=== PATIENT | male | born 1975 | race Two or more races ===

== ENCOUNTER 2017-01-07 07:31 | Observation (INO) | payer MEDICARE, MEDICAID ==
--- NOTE | 2016-12-28 04:08 | Pre-op HX & Phy Repo 2 SIG ---
DATE OF ADMISSION: 01/07/2017 The patient will be admitted possibly on 01/07/2017 under the service of Dr. Michael Iqbal group for left inguinal hernia repair. CHIEF COMPLAINT: Left inguinal hernia repair. HISTORY OF PRESENT ILLNESS: This is the case of a pleasant gentleman who came in to the office today 12/27/2016 for preop medical clearance, left inguinal hernia, symptomatic. He approximately a few months ago, developed left inguinal discomfort and pain and was noted to have some observed bulging in the left inguinal area. Examination shows left inguinal hernia symptomatic. He was seen by Dr. Iqbal and it was recommended that patient be admitted for surgical repair last visit. He is currently asymptomatic. No chest pain, angina, palpitation, or syncope. No shortness of breath. No fevers, night sweats or chills. No other physical complaints. He was just recently released from a very brief incarceration with him admitting that he has not taken his medications for weeks now. He was advised to restart all his medications as soon as possible. He states that he has his medications with him. PAST MEDICAL HISTORY: Significant for stress anxiety, gastroesophageal reflux disease, chronic pain syndrome, seeing pain management, type 2 diabetes, and hyperglycemia with no evidence of current end-organ disease, major depressive disorder, recurrent, crystal methamphetamine abuse, hepatitis B immune, hepatitis A and C negative, obesity, hyperuricemia, vitamin deficiency, HIV infection, uncontrolled and posttraumatic stress disorder. MEDICATIONS: Wellbutrin XL 300 mg once a day, calciferol D3 05963 units once a month, Triumeq 300 mg one p.o. daily, Uloric 40 mg one p.o. daily, diphenhydramine 50 mg p.o. nightly p.r.n. itching, metformin 500 mg one p.o. twice a day, multivitamin one p.o. daily, hydrocodone 5/325 one p.o. q.6 h. p.r.n. pain, and pantoprazole 40 mg p.o. q.p.m. ALLERGIES TO MEDICATIONS: None known. PERSONAL AND SOCIAL HISTORY: He is single. He is disabled. He currently lives with a friend. He smokes less than one pack per day, trying to decrease. He uses intermittent crystal methamphetamine. He states that he is trying to decrease use currently. He takes caffeine and occasional alcohol. FAMILY HISTORY: Noncontributory. REVIEW OF SYSTEMS: General: Positive weight gain. No gross fatigued, weakness, fevers, chills or night sweats. He is a well-developed, poorly nourished, oriented x3, emotional, in no acute cardiorespiratory distress. HEENT: No vision changes. No hearing loss. No swallowing problems. Neck: No masses. No tenderness. Pulmonary: No gross shortness of breath. No coughing, wheezing, expectoration, or hemoptysis. Cardiac: No chest pain, shortness of breath, palpitations, or syncope. Gastrointestinal: Positive occasional , but no other findings. No constipation. No melena or hematochezia. No bright red blood per rectum. No diarrhea. Genitourinary: No dysuria, frequency, hesitancy, or retention. No hematuria. Musculoskeletal: Muscle aches and joint pains. No focal weakness noted. Neurological: No new complaints. No sensory or motor deficits at this time. Psychiatric: He has chronic depression, but no suicidal or homicidal ideations, nor plans. No currently per the patient. PHYSICAL EXAMINATION: VITAL SIGNS: Height is 5 feet 5 inch. Weight is 200 pounds (weight loss of 15 pounds since last visit about 2 months ago). Temperature 98.9 degrees, pulse 85, respirations 15, blood pressure 100/60, and O2 saturation 97%. Pain scale per the patient is 10/10. GENERAL: The patient is a fairly developed obese male, in no acute cardiorespiratory distress. He is alert, coherent, cooperative, emotional and fearful describing his current situation and his previous experience. HEENT: Normocephalic and atraumatic head. Fox conjunctivae. Nonicteric sclerae. Pupils equally reactive to light 3 to 4 mm bilateral. Full EOMs. No jugular venous distention or cervical lymphadenopathy. Trachea midline. Thyroid normal. Supple. CHEST: Bilaterally symmetrical with clear breath sounds. No rales. No wheezes. CARDIOVASCULAR: Regular rate and rhythm. No murmurs. No clicks. No cardiomegaly. ABDOMEN: Globular, soft, and nontender. No hepatosplenomegaly. Normoactive bowel sounds. EXTREMITIES: Fair peripheral pulses. No edema. No cyanosis. No clubbing. GENITOURINARY: Per surgeon. RECTAL: Refused to sign. ASSESSMENT: 1. Left inguinal hernia. 2. Acquired-immunodeficiency syndrome. 3. Crystal methamphetamine abuse. 4. Hyperuricemia. 5. Diabetes mellitus type 2. 6. Chronic pain syndrome. 7. Vitamin D deficiency. 8. Depression. PLAN: 1. The patient is currently cleared for surgery, pending labs. 2. EKG obtained today shows normal sinus rhythm with no acute changes. 3. Plan of management has been discussed with the patient. He is agreeable. 4. Surgical consent for surgery and the surgery service. Heron Lilly M.D. DR: YONAS JOB#: [id number] CC:
--- NOTE | 2017-01-06 20:49 | History and Physical Report ---
DATE OF ADMISSION: 01/07/2017 The patient is scheduled for surgery on 01/07/2017. REASON FOR ADMISSION: Left inguinal hernia. HISTORY OF PRESENT ILLNESS: This 41-year-old black male presents with some left groin discomfort for approximately one year. He was seen by Urology staff in December 2015 and was told that he had a left inguinal hernia. He has been gaining weight recently approximately 25 pounds in the past six months. He also has a fatty liver. He has a history of Crohn's disease diagnosed in 1996. PAST SURGICAL HISTORY: Previous surgeries, none. Colonoscopy and upper endoscopy. MEDICATIONS: Triumeq, Uloric, hydrocodone, pantoprazole 40 mg, vitamin D2, and Benadryl p.r.n. ALLERGIES: None known. SOCIAL HISTORY: Tobacco, one-half pack per day for 15 years. Alcohol, occasional wine. 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 FAMILY HISTORY: The patient's mother and father have diabetes mellitus. His father has liver disease as well. REVIEW OF SYSTEMS: Includes a history of bronchitis and peptic ulcers. The patient has had a hepatitis B vaccine. He has been HIV positive since 2014. No history of opportunistic infections. PHYSICAL EXAMINATION: GENERAL: Reveals a well-developed and well-nourished black male, in no acute distress. HEENT: Normocephalic. Pupils are equal and reactive to light. There is no scleral icterus. NECK: Supple without adenopathy. LUNGS: Clear. HEART: Showed a regular rhythm. No murmurs. No gallops. ABDOMEN: Soft. There is mild discomfort in the right upper quadrant. There were no masses. GENITALIA: Shows testes descended bilaterally. There is a reducible left inguinal hernia. There is no hernia in the right groin. There are no testicular masses. EXTREMITIES: Showed no clubbing, cyanosis, or edema. IMPRESSION: Left inguinal hernia. PLAN: The patient was advised to undergo a left inguinal hernia repair with mesh. The nature, risks, and benefits of the procedure were explained. Michael Iqbal M.D. DR: LANRE JOB#: [id number] CC:
[~2017-01-07] VITALS: Ht 167.6 cm; Wt 86.2 kg
[2017-01-07] VITALS (18 sets, daily range): BP systolic 103–131; BP diastolic 63–94
[2017-01-07] MEDS ORDERED: TRIUMEQ PO (08:09)
[2017-01-07] MEDS ORDERED: VITAMIN D22000 UNIT PO (08:12)
[2017-01-07] MEDS ORDERED: WELLBUTRIN XL150 M1 ORAL (08:12)
[2017-01-07] MEDS ORDERED: BENADRYL25 MG ORAL (08:12)
--- NOTE | 2017-01-07 08:18 | Anethesia Preoperative Eval ---
Anesthesia Pre-op PMH/ROS General Date of Evaluation: January 07, 2017 Anesthesiologist: Dante ASA Score: ASA 3 Mallampati Score Class I : Soft palate, uvula, fauces, pillars visible Class II: Soft palate, uvula, fauces visible Class III: Soft palate, base of uvula visible Class IV: Only hard plate visible Mallampati Classification: Class II Surgeon: Rasheed Diagnosis: Left inguinal hernia Surgical Procedure: Left inguinal hernia repair Anesthesia History: none Family History: no anesthesia problems Allergies: Coded Allergies: No Known Allergies (Unverified , 01/06/17) Medications: see eMAR Past Medical History Cardiovascular: Denies: CAD, HTN, IA, arrhythmia, other, valve dz Pulmonary: Denies: COPD, ERMA, asthma, other Gastrointestinal/Genitourinary: Reports: GERD, other - Crohns, Denies: CRI, ESRD Neurologic/Psychiatric: Denies: CVA, TIA, dementia, depression/anxiety, other Endocrine: Denies: DM, hypothyroidism, other, steroids HEENT: Denies: [place] (L), [place] (R), cataract (L), cataract (R), glaucoma, other Hematology/Immune: Reports: other - HIV, Denies: DVT, anemia, bleeding disorder Musculoskeletal/Integumentary: Denies: DDD, DJD, OA, RA, edema, other PSxH Narrative: Denies Anesthesia Pre-op Phys. Exam Physician Exam Last Vital Signs Date Time Temp Pulse Resp B/P Pulse Ox O2 Delivery O2 Flow Rate FiO2 01/07/17 07:59 98.7 85 18 104/63 97 Room Air Constitutional: NAD Cardiovascular: RRR Respiratory: CTA Airway Exam Mallampati Score: Class II MO: full ROM: full Anesthesia Pre-op A/P Labs see chart Studies Pre-op Studies: EKG - sr Risk Assessment & Plan Assessment: ASa III Plan: GA Status Change Before Surgery: No Pre-Antibiotics Drug: Ancef 2g Given Within 1 Hr of Incision: Yes Time Given: 09:30 ROSE TOLEDO M.D. January 07, 2017 08:18
[2017-01-07] MEDS ORDERED: Midazolam 2mg/2ml Inj ONE ×2 (09:00→11:24)
[2017-01-07] MEDS ORDERED: fentaNYL 100 mcg/2 mL IV ONE (09:00)
[2017-01-07] MEDS ORDERED: Lidocaine 1% MPF 10mg/ml 5ml ONE (09:00)
[2017-01-07] MEDS ORDERED: Propofol 10mg/ml 20ml IV ONE (09:00)
[2017-01-07] MEDS ORDERED: NS Irrig 1000ml ONE (09:00)
[2017-01-07] MEDS ORDERED: LR 1000ml ONE (09:00)
[2017-01-07] MEDS ORDERED: Sterile Water Irrig 1000ml IRRIG ONE (09:00)
[2017-01-07] MEDS ORDERED: Bupivacaine w/Epi 0.25% 30ml Vial INJ ONE (09:08)
--- NOTE | 2017-01-07 09:28 | Pre-Procedure Note/Attestation ---
Pre-Procedure Note/Attestation Complete Prior to Procedure Planned Procedure: left Procedure Narrative: left inguinal hernia repair with mesh Indications for Procedure Pre-Operative Diagnosis: left inguinal hernia Attestation I attest that I discussed the nature of the procedure; its benefits; risks and complications; and alternatives (and the risks and benefits of such alternatives ), prior to the procedure, with the patient (or the patient's legal hospital insurance representative). I attest that, if there was a reasonable possibility of needing a blood transfusion, the patient (or the patient's legal hospital insurance representative) was given the [facility] standardized written summary, pursuant to the [place] Blood Safety Act ([place] Health and Safety Code # 1645, as amended). I attest that I re-evaluated the patient just prior to the surgery and that there has been no change in the patient's H&P, except as documented below: none Michael Iqbal MD January 07, 2017 09:28
[2017-01-07] MEDS ORDERED: LR 1000ml 1,000 ML IVLG SCH (09:42)
[2017-01-07] MEDS ORDERED: DiphenhydrAMINE 50mg/ml Inj IVP PRN ×2 (09:45→11:30)
[2017-01-07] MEDS ORDERED: Hydromorphone 0.5mg/0.5ml inj IVP PRN (09:45)
--- NOTE | 2017-01-07 11:06 | Immediate Post-Op Evaluation ---
Immediate Post-Op Evalulation Immediate Post-Op Evalulation Procedure: Left inguinal hernia repair Date of Evaluation: January 07, 2017 Time of Evaluation: 11:07 IV Fluids: 800 Blood Products: 0 Estimated Blood Loss: 5 Urinary Output: 0 Blood Pressure Systolic: 114 Blood Pressure Diastolic: 66 Pulse Rate: 86 Respiratory Rate: 16 O2 Sat by Pulse Oximetry: 99 Temperature (Fahrenheit): 98 Pain Score (1-10): 0 Nausea: No Vomiting: No Complications 0 Patient Status: awake, reacts, patent, none Hydration Status: adequate Drug: Ancef 2g Given Within 1 Hr of Incision: Yes Time Given: 09:30 ROSE TOLEDO M.D. January 07, 2017 11:06
[2017-01-07] MEDS: Midazolam 2mg/2ml Inj IVP PRN ×2 (11:25→11:30)
--- NOTE | 2017-01-07 11:26 | Brief Operative Note ---
Immediate Post Operative Note Operative Note Pre-op Diagnosis: left inguinal hernia Procedure: left inguinal hernia repair with mesh Post-op Diagnosis: direct left inguinal hernia Surgeon: Karen Iqbal MD Anesthesiologist: Monique Mackay MD Anesthesia: general Specimen: none Complications: none Condition: stable Estimated Blood Loss: minimal Drains: none Implant(s) used?: Yes - Prolene Mesh Michael Iqbal MD January 07, 2017 11:26
[2017-01-07] MEDS ORDERED: HYDROmorphone 1mg/ml Carpuject SUBQ PRN (11:30)
[2017-01-07] MEDS ORDERED: Tylenol #3 tab (300mg/30mg) ORAL PRN (11:30)
[2017-01-07] MEDS: fentaNYL 100 mcg/2 mL IV PRN ×3 (11:30→12:56)
[2017-01-07] MEDS: D5 1/2NS 1,000 ML IV SCH ×2 (15:52→23:59)
--- NOTE | 2017-01-07 16:28 | 48 Hour Post Anesthesia Eval ---
Post Anesthesia Evaluation Procedure: Left inguinal hernia repair Date of Evaluation: January 07, 2017 Time of Evaluation: 15:00 Blood Pressure Systolic: 103 0: 64 Pulse Rate: 70 Respiratory Rate: 20 Temperature (Fahrenheit): 97.5 O2 Sat by Pulse Oximetry: 95 Airway: patent Nausea: No Vomiting: No Pain Intensity: 2 Hydration Status: adequate Cardiopulmonary Status: at baseline Mental Status/LOC: patient returned to baseline Post-Anesthesia Complications: 0 Follow-up care needed: ready to discharge ROSE TOLEDO M.D. January 07, 2017 16:28
[2017-01-07] MEDS: HYDROmorphone 1mg/ml Carpuject IVP PRN ×2 (20:54→23:55)
--- NOTE | 2017-01-07 21:29 | Operative Note - Dictated ---
DATE OF OPERATION: 01/07/2017 PREOPERATIVE DIAGNOSIS: Left inguinal hernia. POSTOPERATIVE DIAGNOSIS: Direct left inguinal hernia. PROCEDURE: Left inguinal hernia repair with mesh. SURGEON: Michael Iqbal M.D. ANESTHESIA: General via laryngeal mask airway. ANESTHESIOLOGIST: Dr. Mackay. INDICATIONS FOR SURGERY: This 41-year-old black male, presented with problems of left inguinal pain. He was found to have an inguinal hernia. He was advised to undergo a left inguinal hernia repair. The patient also complains of some right groin pain. Both physical examination and ultrasound did not reveal a hernia on the right groin. OPERATIVE FINDINGS: Exploration of the left inguinal region revealed a direct hernia with protrusion of preperitoneal fat. No indirect hernia was found nor was a femoral hernia present. OPERATIVE TECHNIQUE: With the patient in the supine position and after induction of adequate general anesthesia, both groins were prepped and draped in sterile fashion. A time-out was called. A left ilioinguinal nerve block was performed using 0.25 Marcaine with epinephrine solution. An incision was made two fingerbreadths above the left inguinal ligament in parallel to the structure. The subcutaneous tissue was divided by sharp dissection with a scalpel. Several bleeding points were cauterized. Some traversing vein in this area was clamped, divided, and ligated with 3-0 Vicryl. Paige's fascia was divided with electrocautery. The aponeurosis of the external oblique was identified as was the external inguinal ring. An incision was made along the fibers of the external oblique entering the inguinal canal. The ilioinguinal nerve was dissected off of the cord structures and retracted. The spermatic cord was mobilized at the level of the pubic tubercle and retracted with a [place] drain. The cord was carefully skeletonized. There was no indirect hernia sac noted. There was an obvious direct hernia present with protrusion of fat. The fascial floor was inspected. A piece of Prolene mesh was placed on the fascial floor. The medial aspect of the mesh was tacked in the pubic tubercle with a 2-0 Prolene suture. The inferior edge of the mesh was tacked to the shelving edge of the inguinal ligament with a running 2-0 Prolene suture. The mesh was dissected lateral to the cord pacing one wing above and one wing below the cord. The superior aspect of the mesh was tacked in the tendinous edge of transversalis with a running 2-0 Prolene suture. Lateral to the cord, the two wings were crossed over and tacked to the internal oblique muscle completing the repair. The ilioinguinal nerve was carefully identified and protected to ensure no inadvertent impingement on the nerve. The newly created internal ring was inspected and was found to be somewhat snug. A small relaxing incision was made in the mesh just medial to the cord. The wound was irrigated with normal saline. A gap on the very medial aspect of the mesh was repaired by placing a 2-0 Prolene suture from the mesh to just above the pubic tubercle. The spermatic cord and ilioinguinal nerve were placed back in the inguinal canal. The external oblique layer was closed with a running 2-0 Vicryl suture. Paige's fascia was closed with interrupted 3-0 Vicryl sutures. The skin was closed with running 4-0 Vicryl stitch. The incision was injected with 10 mL of 0.25% Marcaine with epinephrine solution. Steri-Strips were applied. Sterile dressings were applied. The patient tolerated the procedure well and was returned to the recovery room in stable condition. Estimated blood loss was less than 10 mL. Michael Iqbal M.D. DR: LANRE JOB#: [id number] CC: Heron Lilly M.D.; Fax#: [phone]
[2017-01-08] VITALS: BP 99/58
[2017-01-08] MEDS: Norco 5mg/325mg tab ORAL PRN ×2 (01:01→05:00)
[2017-01-08] MEDS: HYDROmorphone 1mg/ml Carpuject IVP PRN ×3 (03:05→09:10)
[2017-01-08 04:00] VITALS: BP 100/60
[2017-01-08 08:00] VITALS: BP 102/46
[2017-01-08] MEDS ORDERED: NORCO 5-325 TA1 EACH ORAL (09:47)
[2017-01-08] MEDS: D5 1/2NS 1,000 ML IV SCH (11:00)
[2017-01-08] MEDS ORDERED: SENNA S TABLET1 EAC1 PO (11:05)
--- NOTE | 2017-01-08 11:08 | General Surgery Progress Note ---
General Surgery-Progress Note Subjective Symptoms: improved, tolerating diet Additional Comments patient seen and examined at bedside. no acute events. required overnight stay for pain management. still with pain this morning but tolerable. no n/v/f /c. tolerating oral diet. ambulatory with pain as anticipated. doing well overall. Objective Last 24 Hour Vital Signs Date Time Temp Pulse Resp B/P Pulse Ox O2 Delivery O2 Flow Rate FiO2 01/08/17 09:42 97.5 01/08/17 08:00 97.5 66 18 102/46 94 Room Air 01/08/17 06:09 97.5 01/08/17 04:00 97.7 61 16 100/60 98 Room Air 01/08/17 00:00 97.8 67 16 99/58 95 Room Air 01/07/17 20:00 98.0 102 18 131/94 98 Room Air 01/07/17 16:28 70 20 95 01/07/17 15:00 97.5 70 20 103/64 95 Room Air 01/07/17 14:00 68 16 108/64 100 Room Air 01/07/17 13:30 97.8 01/07/17 13:30 97.3 78 17 111/79 100 Room Air 01/07/17 13:15 79 18 103/72 100 Room Air 01/07/17 13:00 67 15 111/76 100 Room Air 01/07/17 12:45 67 16 108/72 100 Room Air 01/07/17 12:30 97.8 01/07/17 12:30 69 18 117/77 99 Room Air 01/07/17 12:15 73 14 115/77 100 Simple Mask 6.0 01/07/17 12:00 73 15 109/76 100 Simple Mask 6.0 01/07/17 11:45 74 14 118/77 99 Simple Mask 6.0 01/07/17 11:40 76 19 122/74 98 Simple Mask 6.0 01/07/17 11:30 79 28 125/78 98 Room Air 01/07/17 11:20 88 22 119/88 100 Simple Mask 6.0 01/07/17 11:10 84 16 119/79 100 Simple Mask 6.0 01/07/17 11:06 86 16 99 I&O Intake and Output 01/07/17 01/08/17 19:00 07:00 Intake Total 1800 ml 800 ml Output Total 5 ml 600 ml Balance 1795 ml 200 ml IV Total 1800 ml 800 ml Output Urine Total 600 ml Estimated Blood Loss 5 ml # Voids 3 1 Dressing: dry Wound: clean, dry, intact Drains: none Cardiovascular: RSR Respiratory: clear Abdomen: soft, non-tender, present bowel sounds Extremities: no edema, no tenderness, no cyanosis Plan Additional Comments 41 M POD #1 s/p left inguinal hernia repair with mesh. doing well. recovering. required overnight stay for pain management. doing better this morning. -D/C home -Rx as writtent -Follow up in [address] Iqbal. call office for appointment. -wound care and activity instructions given to patient verbally at bedside. Gage Powell January 08, 2017 11:07
--- NOTE | 2017-01-08 11:09 | Discharge Instructions ---
Discharge Instructions Discharge Instructions Follow up with: Dr. Iqbal in 1 week. call office for appointment Call MD/Return to Hospital if: worsening condition Diet: regular Resume Normal Activity?: No - no heavy lifting >15lbs for 4-6 weeks. Activity: up ad sherron, light activity, ambulate, okay to shower For Surgical Patients Dressing Care: may change May shower: Yes Contact your physician for: bleeding, pain, redness, swelling, yellowish discharge in the op. site For Congestive Heart Failure Reminder Report to your physician any weight gain of 5 pounds or more in one week. Gage Powell January 08, 2017 11:09
== END 2017-01-08 12:00 | disposition home or self-care (01) ==
LOC: SUR 07:31 → 3E 13:38 → INTOOBSV 13:38
DX: K40.90 Unilateral inguinal hernia, without obstruction or gangrene, not specified as recurrent (principal); F41.8 Other specified anxiety disorders; F33.9 Major depressive disorder, recurrent, unspecified; F43.10 Post-traumatic stress disorder, unspecified; K21.9 Gastro-esophageal reflux disease without esophagitis; G89.4 Chronic pain syndrome; E11.9 Type 2 diabetes mellitus without complications; F15.10 Other stimulant abuse, uncomplicated; E66.9 Obesity, unspecified; Z68.33 Body mass index [BMI] 33.0-33.9, adult; E79.0 Hyperuricemia without signs of inflammatory arthritis and tophaceous disease; E55.9 Vitamin D deficiency, unspecified; F17.210 Nicotine dependence, cigarettes, uncomplicated; K50.90 Crohn's disease, unspecified, without complications; Z79.84 Long term (current) use of oral hypoglycemic drugs
CPT/HCPCS: 49505; 82962; C1781; G0378 ×2; J0690; J1170 ×3; J1200; J2250; J2405; J2704; J3010; J7120; 94003; 94150

== ENCOUNTER 2017-06-06 12:08 | Outpatient (CLI) | payer MEDICARE, MEDICAID ==
[~2017-06-06 12:08] MED LIST: BENADRYL25 MG ORAL; NORCO 5-325 TA1 EACH ORAL; SENNA S TABLET1 EAC1 PO; TRIUMEQ PO; VITAMIN D22000 UNIT PO; WELLBUTRIN XL150 M1 ORAL
--- NOTE | 2017-06-06 14:31 | Diagnostic Imaging Report ---
Indication: Abdominal pain Technique: Continuous helical transaxial imaging of the abdomen and pelvis was obtained from the lung bases to the iliac crest before and during intravenous contrast administration. Coronal 2-D reformats were also obtained. Study obtained in a Siemens sensation [address] Total Dose length Product (DLP): [address] Dose Index Volume (CTDIvol): 0.15, 15.55, 8.1, 129.78, 15.55, 16.01 mGy Comparison: None Findings: Lung bases are clear. Noncontrast portion of the study shows no evidence of renal stones. Both kidneys enhance normally on arterial venous and delayed phases of enhancement. There is no hydronephrosis. No focal lesions are seen within either kidney. The visualized part of the abdomen shows no evidence of ascites. The liver and spleen, pancreas, gallbladder appear unremarkable. There is no adrenal mass. Small nodes in the retroperitoneum noted. The liver is normal in size having a craniocaudal dimension of about 15 cm. There is no splenomegaly. Portal vein enhances normally. Impression: Negative evaluation of the abdomen. The CT scanner at [facility] is accredited by the [employer] and the scans are performed using protocols designed to limit radiation exposure to as low as reasonably achievable to attain images of sufficient resolution adequate for diagnostic evaluation.
== END 2017-06-06 14:08 | disposition home or self-care (01) ==
LOC: CAT 12:08
DX: R10.9 Unspecified abdominal pain (principal)
CPT/HCPCS: 74170; Q9967

== ENCOUNTER 2017-12-20 17:41 | Inpatient (IN) | payer MEDICARE, MEDICAID ==
[~2017-12-20] VITALS: Ht 162.6 cm; Wt 89.4 kg
[2017-12-20 18:17] VITALS: BP 123/76
[2017-12-20] MEDS ORDERED: Morphine Sulfate 4mg/ml Inj IVP ONE (18:30)
[2017-12-20] MEDS ORDERED: Aspirin Baby 81mg ORAL ONE (18:30)
[2017-12-20] MEDS ORDERED: Aspirin Baby 81mg ONE (18:41)
--- NOTE | 2017-12-20 18:59 | Emergency Room Report ---
History of Present Illness General Chief Complaint: Pain Source: Patient Present Illness [facility] Patient's primary care physician is Dr. Heron Yeager. Patient has a history HIV. Patient presents emergency department today complaining of acute onset of chest pain. Patient states that he has had chest pain intermittently for a couple weeks. He has been admitted recently to [facility] where he was detoxing from methamphetamine abuse. He also was seen at [facility] yesterday where he had a CAT scan. However he did not have troponin. He presents today complaining of persistent chest pain. He went to see his primary care physician Dr. Heron Yeager and then was told to come emergency department for his chest pain. He denies any leg pain leg swelling. Denies having recent stress test. Symptoms noted to be moderate to severe. Patient denies any cough runny nose or sore throat.No other modifying factors. No other associated signs and symptoms. No other complaints were noted. Allergies: Coded Allergies: No Known Allergies (Unverified , 01/06/17) Patient History Past Medical History: DM Past Surgical History: none Pertinent Family History: none Social History: Denies: smoking, alcohol use, drug use Reviewed Nursing Documentation: PMH: Agreed; PSxH: Agreed Nursing Documentation-PMH Hx Cardiac Problems: No - HIV + Hx Diabetes: Yes Hx Cancer: No Hx Gastrointestinal Problems: Yes Hx Neurological Problems: No Review of Systems All Other Systems: negative except mentioned in HPI Physical Exam Vital Signs Date Time Temp Pulse Resp B/P (MAP) Pulse Ox O2 Delivery O2 Flow Rate FiO2 12/20/17 17:43 98.0 98 18 109/77 95 Room Air 98.1 Sp02 EP Interpretation: reviewed, normal General Appearance: alert, moderate distress Head: atraumatic Eyes: bilateral eye normal inspection ENT: normal ENT inspection, hearing grossly normal, normal voice Neck: normal inspection, full range of motion, supple, no bony tend Respiratory: normal inspection, lungs clear, normal breath sounds, no respiratory distress, no retraction, no wheezing Cardiovascular #1: regular rate, rhythm, no edema Gastrointestinal: normal inspection, normal bowel sounds, non tender, soft, no guarding, no hernia Genitourinary: no CVA tenderness Musculoskeletal: normal inspection, back normal, normal range of motion Neurologic: normal inspection, alert, responsive, speech normal Psychiatric: normal inspection, judgement/insight normal, mood/affect normal Skin: normal inspection, normal color, no rash Medical Decision Making Diagnostic Impression: Primary Impression: ACS (acute coronary syndrome) Additional Impression: Drug abuse ER Course Patient presented to the emergency department today complaining of chest pain. Differential diagnoses include acute coronary syndrome, pulmonary embolism, pneumothorax, chest wall pain, pleurisy, pericarditis, acute anxiety reaction just to name a few. Given the severity of the patient's presentation I felt this is a highly complex patient. This patient required extensive workup. CBC , chemistry, EKG, chest x-ray, cardiac enzymes, liver profile were all obtained. 12-lead EKG performed for nontraumatic chest pain. PQRS documentation: EKG was performed. Please refer to below for interpretation. Patient's laboratory workup was negative except for evidence of drug abuse. Case was discussed with Dr. Yeager. Given patient's comp located history high risk behavior felt the patient require admission for further treatment. Case will be discussed with Dr. Recio's group for admission. Labs Test 12/20/17 18:31 12/20/17 19:40 White Blood Count 5.6 K/UL (4.8-10.8) Red Blood Count 3.96 M/UL (4.70-6.10) Hemoglobin 12.9 G/DL (14.2-18.0) Hematocrit 37.9 % (42.0-52.0) Mean Corpuscular Volume 96 FL (80-99) Mean Corpuscular Hemoglobin 32.6 PG (27.0-31.0) Mean Corpuscular Hemoglobin Concent 34.1 G/DL (32.0-36.0) Red Cell Distribution Width 13.7 % (11.6-14.8) Platelet Count 224 K/UL (150-450) Mean Platelet Volume 8.3 FL (6.5-10.1) Neutrophils (%) (Auto) 47.9 % (45.0-75.0) Lymphocytes (%) (Auto) 36.6 % (20.0-45.0) Monocytes (%) (Auto) 10.9 % (1.0-10.0) Eosinophils (%) (Auto) 3.5 % (0.0-3.0) Basophils (%) (Auto) 1.1 % (0.0-2.0) Sodium Level 141 MMOL/L (136-145) Potassium Level 3.8 MMOL/L (3.5-5.1) Chloride Level 105 MMOL/L (98-107) Carbon Dioxide Level 27 MMOL/L (21-32) Anion Gap 10 mmol/L (5-15) Blood Urea Nitrogen 16 mg/dL (7-18) Creatinine 1.1 MG/DL (0.55-1.30) Estimat Glomerular Filtration Rate > 60 mL/min (>60) Glucose Level 95 MG/DL (74-106) Calcium Level 8.8 MG/DL (8.5-10.1) Total Bilirubin 0.2 MG/DL (0.2-1.0) Aspartate Amino Transf (AST/SGOT) 31 U/L (15-37) Alanine Aminotransferase (ALT/SGPT) 109 U/L (12-78) Alkaline Phosphatase 84 U/L (46-116) Total Creatine Kinase 573 U/L (26-308) Creatine Kinase MB 3.4 NG/ML (0.0-3.6) Creatine Kinase MB Relative Index 0.5 Troponin I 0.000 ng/mL (0.000-0.056) Pro-B-Type Natriuretic Peptide 20 pg/mL (0-125) Total Protein 7.8 G/DL (6.4-8.2) Albumin 4.0 G/DL (3.4-5.0) Globulin 3.8 g/dL Albumin/Globulin Ratio 1.1 (1.0-2.7) Urine Color Pale yellow Urine Appearance Clear Urine pH 6 (4.5-8.0) Urine Specific [place] 1.015 (1.005-1.035) Urine Protein Negative (NEGATIVE) Urine Glucose (UA) Negative (NEGATIVE) Urine Ketones Negative (NEGATIVE) Urine Occult Blood Negative (NEGATIVE) Urine Nitrite Negative (NEGATIVE) Urine Bilirubin Negative (NEGATIVE) Urine Urobilinogen Normal MG/DL (0.0-1.0) Urine Leukocyte Esterase 1+ (NEGATIVE) Urine RBC 0-2 /HPF (0 - 0) Urine WBC 0-2 /HPF (0 - 0) Urine Squamous Epithelial Cells None /LPF (NONE/OCC) Urine Bacteria Few /HPF (NONE) Urine Opiates Screen Negative (NEGATIVE) Urine Barbiturates Screen Negative (NEGATIVE) Phencyclidine (PCP) Screen Negative (NEGATIVE) Urine Amphetamines Screen Positive (NEGATIVE) Urine Benzodiazepines Screen Positive (NEGATIVE) Urine Cocaine Screen Negative (NEGATIVE) Urine Marijuana (THC) Screen Positive (NEGATIVE) EKG Diagnostic Results Rate: normal Rhythm: NSR ST Segments: no acute changes Rhythm Strip Diag. Results EP Interpretation: yes Rate: 86 Rhythm: NSR, no PVC's, no ectopy Chest X-Ray Diagnostic Results Chest X-Ray Diagnostic Results : Chest X-Ray Ordered: Yes # of Views/Limited/Complete: 1 View Indication: Chest Pain EP Interpretation: Yes Interpretation: no consolidation, no effusion, no pneumothorax, no acute cardiopulmonary disease Impression: No acute disease Electronically Signed by: Dr. Baldemar Zhao MD Last Vital Signs Date Time Temp Pulse Resp B/P (MAP) Pulse Ox O2 Delivery O2 Flow Rate FiO2 12/20/17 18:47 98.0 12/20/17 18:17 96 29 123/76 99 Room Air Status: improved Disposition: ADMITTED INPATIENT Condition: Serious Referrals: HERON YEAGER (PCP) BALDEMAR ZHAO M.D. Dec 20, 2017 18:59
[2017-12-20] MEDS ORDERED: DiphenhydrAMINE 50mg/ml Inj IVP ONE ×2 (19:00→20:30)
[2017-12-20 19:04] LABS: BASOPHILS % (AUTO) 1.1 % (0.0-2.0); EOSINOPHILS % (AUTO) 3.5 % (0.0-3.0); HEMATOCRIT 37.9 % (42.0-52.0); HEMOGLOBIN 12.9 G/DL (14.2-18.0); LYMPHOCYTES % (AUTO) 36.6 % (20.0-45.0); MEAN CORPUSCULAR VOLUME 96 FL (80-99); MONOCYTES % (AUTO) 10.9 % (1.0-10.0); NEUTROPHILS % (AUTO) 47.9 % (45.0-75.0); PLATELET COUNT 224 K/UL (150-450); RED BLOOD COUNT 3.96 M/UL (4.70-6.10); RED CELL DISTRIBUTION WIDTH 13.7 % (11.6-14.8); WHITE BLOOD COUNT 5.6 K/UL (4.8-10.8)
[2017-12-20 19:28] LABS: ALANINE AMINOTRANSFERASE 109 U/L (12-78); ALBUMIN/GLOBULIN RATIO 1.1 (1.0-2.7); ALKALINE PHOSPHATASE 84 U/L (46-116); ANION GAP 10 mmol/L (5-15); ASPARTATE AMINO TRANSFERASE 31 U/L (15-37); BILIRUBIN,TOTAL 0.2 MG/DL (0.2-1.0); BLOOD UREA NITROGEN 16 mg/dL (7-18); CALCIUM 8.8 MG/DL (8.5-10.1); CARBON DIOXIDE 27 MMOL/L (21-32); CHLORIDE 105 MMOL/L (98-107); CKMB 3.4 NG/ML (0.0-3.6); CREATINE KINASE 573 U/L (26-308); CREATININE 1.1 MG/DL (0.55-1.30); POTASSIUM 3.8 MMOL/L (3.5-5.1); SODIUM 141 MMOL/L (136-145)
[2017-12-20 19:45] VITALS: BP 119/72
[2017-12-20] MEDS ORDERED: BANOPHEN25 MG PO (19:58)
[2017-12-20] MEDS ORDERED: ULORIC40 MG ORAL (19:58)
[2017-12-20] MEDS ORDERED: IBUPROFEN600 MG ORAL (19:58)
[2017-12-20] MEDS ORDERED: WELLBUTRIN XL150 MG ORAL (20:08)
[2017-12-20 20:22] LABS: APPEARANCE,URINE CLEAR; BILIRUBIN, URINE NEGATIVE (NEGATIVE); COLOR,URINE PALE YELLOW; GLUCOSE, URINE (UA) NEGATIVE (NEGATIVE); KETONES,URINE NEGATIVE (NEGATIVE); LEUKOCYTE ESTERASE ,URINE 1+ (NEGATIVE); NITRITE,URINE NEGATIVE (NEGATIVE); PH,URINE 6 (4.5-8.0); PROTEIN,URINE NEGATIVE (NEGATIVE); UROBILINOGEN,URINE NORMAL MG/DL (0.0-1.0)
[2017-12-20] MEDS ORDERED: BISACODYL5 MG ORAL (20:29)
[2017-12-20] MEDS ORDERED: VENTOLIN HFA18 GM INH (20:29)
[2017-12-20 21:00] VITALS: BP 117/63
[2017-12-20 21:50] VITALS: BP 113/65
[2017-12-21] VITALS: BP 99/62
[2017-12-21 04:00] VITALS: BP 99/57
[2017-12-21 08:00] VITALS: BP 101/70
[2017-12-21] MEDS ORDERED: Albuterol 90mcg Inhaler 8gm INH PRN (09:00)
--- NOTE | 2017-12-21 09:02 | Diagnostic Imaging Report ---
Indication: Cough Technique: XRAY Chest 1v Comparison: None Findings: The cardiomediastinal silhouette is within normal limits. There is no focal consolidation, pneumothorax or pleural effusion. Osseous structures demonstrate no acute abnormality. Impression: No focal consolidation.
[2017-12-21 09:45] LABS: ALANINE AMINOTRANSFERASE 88 U/L (12-78); ALBUMIN 3.4 G/DL (3.4-5.0); ALBUMIN/GLOBULIN RATIO 0.9 (1.0-2.7); ALKALINE PHOSPHATASE 83 U/L (46-116); ANION GAP 9 mmol/L (5-15); ASPARTATE AMINO TRANSFERASE 23 U/L (15-37); BILIRUBIN,TOTAL 0.2 MG/DL (0.2-1.0); BLOOD UREA NITROGEN 20 mg/dL (7-18); CALCIUM 8.5 MG/DL (8.5-10.1); CARBON DIOXIDE 27 MMOL/L (21-32); CHLORIDE 107 MMOL/L (98-107); CREATININE 1.1 MG/DL (0.55-1.30); POTASSIUM 4.2 MMOL/L (3.5-5.1); SODIUM 143 MMOL/L (136-145)
[2017-12-21] MEDS ORDERED: NORCO 5-325 TA1 EACH ORAL (10:08)
[2017-12-21] MEDS ORDERED: NORCO 10/3251 EA ORAL (10:08)
[2017-12-21] MEDS ORDERED: Morphine Sulfate 4mg/ml Inj IVP ONE (11:30)
[2017-12-21] MEDS: DiphenhydrAMINE 50mg/ml Inj IVP PRN (11:37)
[2017-12-21] MEDS: Bisacodyl EC 5mg tab ORAL SCH (11:39)
[2017-12-21 12:00] VITALS: BP 103/52
--- NOTE | 2017-12-21 12:23 | History and Physical ---
History of Present Illness General Date patient seen: Dec 21, 2017 Reason for Hospitalization: chest pain, acs r/o Present Illness HPI patient is a 42 year old male with past medical history significant for HIV, DM , adrenal insufficiency attributed to HIV, s/p inguinal hernia repair presents emergency department tcomplaining of acute onset of chest pain. Patient states that he has had chest pain intermittently for a couple weeks but the pain got worse on the day of presentation. He notes sharp occuring at rest and with exertion radaiting to his arm. he notes that when he feels stressed the pain gets worse. He has been admitted recently to [facility] where he was detoxing from methamphetamine abuse. he was discharged from [facility] on 12/16. He also was seen at [facility] 2 days ago where he had a CAT scan and revealed a 3 mm left lower lobe nodule.. He went to see his primary care physician Dr. Heron Lilly and then was told to come emergency department for his chest pain. He denies any leg pain leg swelling. Denies having recent stress test. . Patient denies any cough runny nose or sore throat.No other modifying factors. No other associated signs and symptoms. patient also complains of scrotal discomfort. he has history of inguinal hernia repair patient smokes about 1/2 pack daily for the past 20 years Allergies: Allergies: Coded Allergies: No Known Allergies (Unverified , 01/06/17) Medication History Scheduled Bisacodyl* (Dulcolax*), 5 MG ORAL DAILY, (Reported) Bupropion Hcl* (Wellbutrin Xl*), 150 MG ORAL BID, (Reported) Ergocalciferol (Vitamin D2) (Vitamin D2), 2,000 UNIT PO ONCE A MONTH, (Reported) Febuxostat (Uloric), 40 MG ORAL DAILY, (Reported) Hydrocodone Bit/Acetaminophen 5-325* ([place] 5-325*), 1 TAB ORAL BEDTIME, ( Reported) Hydrocodone/Acetaminophen (Hydrocodon-Acetaminophn 10-325), 1 TAB ORAL ACBREAKFAST, (Reported) Ibuprofen* (Motrin*), 800 MG ORAL THREE TIMES A DAY, (Reported) [Triumeq], 300 MG PO DAILY, (Reported) Scheduled PRN Albuterol Sulfate (Ventolin Hfa), 2 PUFFS INH EVERY 6 HOURS PRN for Shortness of Breath, (Reported) Diphenhydramine Hcl (Banophen), 25 MG PO BID PRN for Itching, (Reported) Discontinued Medications Bupropion HCl (Wellbutrin Xl), 300 MG ORAL DAILY, (Reported) Discontinued Reason: Medication dose changed Hydrocodone Bit/Acetaminophen 5-325* ([place] 5-325*), 1 TAB ORAL Q4H PRN for For Pain, (Reported) Discontinued Reason: Therapy completed Patient History History Provided By: Patient Healthcare decision maker Resuscitation status Full Code Advanced Directive on File Past Medical/Surgical History Past Medical/Surgical History: (1) Drug abuse Review of Systems Constitutional: Reports: no symptoms Eye: Reports: no symptoms Cardiovascular: Reports: chest pain, palpitations Genitourinary: Reports: no symptoms Musculoskeletal: Reports: no symptoms Skin: Reports: no symptoms Neurological: Reports: no symptoms Hematologic/Lymphatic: Reports: no symptoms Physical Exam General Appearance: WD/WN, no apparent distress HEENT: normocephalic, atraumatic Neck: non-tender, supple Respiratory/Chest: chest wall non-tender, lungs clear Abdomen: normal bowel sounds, non tender, soft, no mass Extremities: no edema, no cyanosis, calf tenderness Skin Exam: normal pigmentation Neurologic: soft work wrapper layer and examiner II-XII grossly normal Musculoskeletal: normal muscle bulk Last 24 Hour Vital Signs Date Time Temp Pulse Resp B/P (MAP) Pulse Ox O2 Delivery O2 Flow Rate FiO2 12/21/17 08:00 97.5 70 20 101/70 99 97.5 12/21/17 08:00 72 12/21/17 04:00 79 12/21/17 04:00 97.5 75 20 99/57 96 97.5 12/21/17 00:00 81 12/21/17 00:00 97.2 81 20 99/62 100 97.2 12/20/17 21:50 85 12/20/17 21:50 97.2 84 20 113/65 97 97.2 12/20/17 21:40 98.0 90 20 117/63 99 Room Air 98.0 12/20/17 21:00 98.0 90 20 117/63 99 Room Air 98.0 12/20/17 19:45 98.0 90 22 119/72 99 Room Air 98.0 12/20/17 19:17 98.0 12/20/17 18:47 98.0 12/20/17 18:17 96 29 123/76 99 Room Air 12/20/17 17:43 98.0 98 18 109/77 95 Room Air 98.1 Intake and Output 12/20/17 12/21/17 19:00 07:00 Intake Total 0 ml Output Total 850 ml Balance 0 ml -850 ml Intake Oral 0 ml Output Urine Total 850 ml # Voids 1 Laboratory Tests Test 12/20/17 18:31 12/20/17 19:40 12/21/17 06:53 12/21/17 12:05 White Blood Count 5.6 K/UL (4.8-10.8) Red Blood Count 3.96 M/UL (4.70-6.10) L Hemoglobin 12.9 G/DL (14.2-18.0) L Hematocrit 37.9 % (42.0-52.0) L Mean Corpuscular Volume 96 FL (80-99) Mean Corpuscular Hemoglobin 32.6 PG (27.0-31.0) H Mean Corpuscular Hemoglobin Concent 34.1 G/DL (32.0-36.0) Red Cell Distribution Width 13.7 % (11.6-14.8) Platelet Count 224 K/UL (150-450) Mean Platelet Volume 8.3 FL (6.5-10.1) Neutrophils (%) (Auto) 47.9 % (45.0-75.0) Lymphocytes (%) (Auto) 36.6 % (20.0-45.0) Monocytes (%) (Auto) 10.9 % (1.0-10.0) H Eosinophils (%) (Auto) 3.5 % (0.0-3.0) H Basophils (%) (Auto) 1.1 % (0.0-2.0) Sodium Level 141 MMOL/L (136-145) 143 MMOL/L (136-145) Potassium Level 3.8 MMOL/L (3.5-5.1) 4.2 MMOL/L (3.5-5.1) Chloride Level 105 MMOL/L (98-107) 107 MMOL/L (98-107) Carbon Dioxide Level 27 MMOL/L (21-32) 27 MMOL/L (21-32) Anion Gap 10 mmol/L (5-15) 9 mmol/L (5-15) Blood Urea Nitrogen 16 mg/dL (7-18) 20 mg/dL (7-18) H Creatinine 1.1 MG/DL (0.55-1.30) 1.1 MG/DL (0.55-1.30) Estimat Glomerular Filtration Rate > 60 mL/min (>60) > 60 mL/min (>60) Glucose Level 95 MG/DL (74-106) 84 MG/DL (74-106) Calcium Level 8.8 MG/DL (8.5-10.1) 8.5 MG/DL (8.5-10.1) Total Bilirubin 0.2 MG/DL (0.2-1.0) 0.2 MG/DL (0.2-1.0) Aspartate Amino Transf (AST/SGOT) 31 U/L (15-37) 23 U/L (15-37) Alanine Aminotransferase (ALT/SGPT) 109 U/L (12-78) H 88 U/L (12-78) H Alkaline Phosphatase 84 U/L (46-116) 83 U/L (46-116) Total Creatine Kinase 573 U/L (26-308) H Creatine Kinase MB 3.4 NG/ML (0.0-3.6) Creatine Kinase MB Relative Index 0.5 Troponin I 0.000 ng/mL (0.000-0.056) 0.000 ng/mL (0.000-0.056) Pending Pro-B-Type Natriuretic Peptide 20 pg/mL (0-125) Total Protein 7.8 G/DL (6.4-8.2) 7.0 G/DL (6.4-8.2) Albumin 4.0 G/DL (3.4-5.0) 3.4 G/DL (3.4-5.0) Globulin 3.8 g/dL 3.6 g/dL Albumin/Globulin Ratio 1.1 (1.0-2.7) 0.9 (1.0-2.7) L Urine Color Pale yellow Urine Appearance Clear Urine pH 6 (4.5-8.0) Urine Specific [place] 1.015 (1.005-1.035) Urine Protein Negative (NEGATIVE) Urine Glucose (UA) Negative (NEGATIVE) Urine Ketones Negative (NEGATIVE) Urine Occult Blood Negative (NEGATIVE) Urine Nitrite Negative (NEGATIVE) Urine Bilirubin Negative (NEGATIVE) Urine Urobilinogen Normal MG/DL (0.0-1.0) Urine Leukocyte Esterase 1+ (NEGATIVE) H Urine RBC 0-2 /HPF (0 - 0) H Urine WBC 0-2 /HPF (0 - 0) Urine Squamous Epithelial Cells None /LPF (NONE/OCC) Urine Bacteria Few /HPF (NONE) Urine Opiates Screen Negative (NEGATIVE) Urine Barbiturates Screen Negative (NEGATIVE) Phencyclidine (PCP) Screen Negative (NEGATIVE) Urine Amphetamines Screen Positive (NEGATIVE) H Urine Benzodiazepines Screen Positive (NEGATIVE) H Urine Cocaine Screen Negative (NEGATIVE) Urine Marijuana (THC) Screen Positive (NEGATIVE) H Height (Feet): 5 Height (Inches): 4.00 Weight (Pounds): 197 Medications Current Medications Medications (Trade) Dose Ordered Sig/Sudheer Route PRN Reason Start Time Stop Time Status Last Admin Dose Admin Acetaminophen/ Hydrocodone Bitart ([place] 10/325) 1 tab ACBREAKFAST ORAL 12/22/17 06:30 12/29/17 06:29 UNV Acetaminophen/ Hydrocodone Bitart ([place] 5/325) 1 tab BEDTIME ORAL 12/21/17 21:00 12/28/17 20:59 UNV Albuterol Sulfate (Proventil MDI) 1 puff EVERY 6 HOURS PRN INH Shortness of Breath 12/21/17 09:00 01/20/18 08:59 Bisacodyl (Dulcolax) 5 mg DAILY ORAL 12/21/17 10:00 01/20/18 09:59 12/21/17 11:39 Bupropion HCl (Wellbutrin XL) 150 mg BID ORAL 12/21/17 09:00 01/20/18 08:59 UNV Diphenhydramine HCl (Benadryl) 25 mg BID PRN ORAL Itching 12/21/17 09:00 01/20/18 08:59 Diphenhydramine HCl (Benadryl) 25 mg Q6H PRN IVP Itching 12/21/17 12:00 01/20/18 11:59 12/21/17 11:37 Ibuprofen (Advil) 800 mg THREE TIMES A DAY PRN ORAL Moderate Pain (Pain Scale 4-6) 12/21/17 09:00 01/20/18 08:59 Non-Formulary Medication (Non-Formulary Med) 1 ea DAILY ORAL 12/21/17 09:00 01/20/18 08:59 UNV Non-Formulary Medication (Non-Formulary Med) 1 ea DAILY ORAL 12/21/17 09:00 01/20/18 08:59 UNV Vitamin D (Vitamin D) 2,000 intlu QMONTH ORAL 12/21/17 09:00 01/20/18 08:59 UNV Assessment/Plan Assessment/Plan #chest pain r/o ACS # recent diagnosis of lung nodule per CT scan in [facility] #scrotal pain- history of inguinal hernia #history of meth abuse- recent detox in mid november. #Adrenal insufficiency, possibly 2/2 HIV #HIV infection on HAART #DM2 #Crohn's disease - admit to tele - serial trop - 2d echo - cardiology consult - aspirin 81 daily - lipitor 80 daily - follow up with pcp for evaluation of lung nodule - 3 cm nodule in the left lower lobe - ISS -accuchecks TID AC - diabetic diet #DVT ppx #fullcode per policy Cristofer Grimm M.D. Dec 21, 2017 12:23
[2017-12-21] MEDS ORDERED: Aspirin EC 81mg tab ORAL SCH (14:00)
[2017-12-21] MEDS: BuPROPion XL 300mg tab ORAL SCH (14:30)
[2017-12-21] MEDS ORDERED: ULORIC 40 MG ORAL SCH (15:00)
[2017-12-21 16:00] VITALS: BP 103/68
--- NOTE | 2017-12-21 16:25 | Cardiac Electrophysiology PN ---
Subjective Subjective Dictated [id number] Stress test in am. EF NL ECG NL No IL Objective Last 24 Hour Vital Signs Date Time Temp Pulse Resp B/P (MAP) Pulse Ox O2 Delivery O2 Flow Rate FiO2 12/21/17 12:00 82 12/21/17 12:00 97.9 72 20 103/52 100 Room Air 97.9 12/21/17 08:00 97.5 70 20 101/70 99 97.5 12/21/17 08:00 72 12/21/17 04:00 79 12/21/17 04:00 97.5 75 20 99/57 96 97.5 12/21/17 00:00 81 12/21/17 00:00 97.2 81 20 99/62 100 97.2 12/20/17 21:50 85 12/20/17 21:50 97.2 84 20 113/65 97 97.2 12/20/17 21:40 98.0 90 20 117/63 99 Room Air 98.0 12/20/17 21:00 98.0 90 20 117/63 99 Room Air 98.0 12/20/17 19:45 98.0 90 22 119/72 99 Room Air 98.0 12/20/17 19:17 98.0 12/20/17 18:47 98.0 12/20/17 18:17 96 29 123/76 99 Room Air 12/20/17 17:43 98.0 98 18 109/77 95 Room Air 98.1 Intake and Output 12/20/17 12/21/17 19:00 07:00 Intake Total 0 ml Output Total 850 ml Balance 0 ml -850 ml Intake Oral 0 ml Output Urine Total 850 ml # Voids 1 Laboratory Tests Test 12/20/17 18:31 12/20/17 19:40 12/21/17 06:53 12/21/17 12:05 White Blood Count 5.6 K/UL (4.8-10.8) Red Blood Count 3.96 M/UL (4.70-6.10) L Hemoglobin 12.9 G/DL (14.2-18.0) L Hematocrit 37.9 % (42.0-52.0) L Mean Corpuscular Volume 96 FL (80-99) Mean Corpuscular Hemoglobin 32.6 PG (27.0-31.0) H Mean Corpuscular Hemoglobin Concent 34.1 G/DL (32.0-36.0) Red Cell Distribution Width 13.7 % (11.6-14.8) Platelet Count 224 K/UL (150-450) Mean Platelet Volume 8.3 FL (6.5-10.1) Neutrophils (%) (Auto) 47.9 % (45.0-75.0) Lymphocytes (%) (Auto) 36.6 % (20.0-45.0) Monocytes (%) (Auto) 10.9 % (1.0-10.0) H Eosinophils (%) (Auto) 3.5 % (0.0-3.0) H Basophils (%) (Auto) 1.1 % (0.0-2.0) Sodium Level 141 MMOL/L (136-145) 143 MMOL/L (136-145) Potassium Level 3.8 MMOL/L (3.5-5.1) 4.2 MMOL/L (3.5-5.1) Chloride Level 105 MMOL/L (98-107) 107 MMOL/L (98-107) Carbon Dioxide Level 27 MMOL/L (21-32) 27 MMOL/L (21-32) Anion Gap 10 mmol/L (5-15) 9 mmol/L (5-15) Blood Urea Nitrogen 16 mg/dL (7-18) 20 mg/dL (7-18) H Creatinine 1.1 MG/DL (0.55-1.30) 1.1 MG/DL (0.55-1.30) Estimat Glomerular Filtration Rate > 60 mL/min (>60) > 60 mL/min (>60) Glucose Level 95 MG/DL (74-106) 84 MG/DL (74-106) Calcium Level 8.8 MG/DL (8.5-10.1) 8.5 MG/DL (8.5-10.1) Total Bilirubin 0.2 MG/DL (0.2-1.0) 0.2 MG/DL (0.2-1.0) Aspartate Amino Transf (AST/SGOT) 31 U/L (15-37) 23 U/L (15-37) Alanine Aminotransferase (ALT/SGPT) 109 U/L (12-78) H 88 U/L (12-78) H Alkaline Phosphatase 84 U/L (46-116) 83 U/L (46-116) Total Creatine Kinase 573 U/L (26-308) H Creatine Kinase MB 3.4 NG/ML (0.0-3.6) Creatine Kinase MB Relative Index 0.5 Troponin I 0.000 ng/mL (0.000-0.056) 0.000 ng/mL (0.000-0.056) 0.000 ng/mL (0.000-0.056) Pro-B-Type Natriuretic Peptide 20 pg/mL (0-125) Total Protein 7.8 G/DL (6.4-8.2) 7.0 G/DL (6.4-8.2) Albumin 4.0 G/DL (3.4-5.0) 3.4 G/DL (3.4-5.0) Globulin 3.8 g/dL 3.6 g/dL Albumin/Globulin Ratio 1.1 (1.0-2.7) 0.9 (1.0-2.7) L Urine Color Pale yellow Urine Appearance Clear Urine pH 6 (4.5-8.0) Urine Specific [place] 1.015 (1.005-1.035) Urine Protein Negative (NEGATIVE) Urine Glucose (UA) Negative (NEGATIVE) Urine Ketones Negative (NEGATIVE) Urine Occult Blood Negative (NEGATIVE) Urine Nitrite Negative (NEGATIVE) Urine Bilirubin Negative (NEGATIVE) Urine Urobilinogen Normal MG/DL (0.0-1.0) Urine Leukocyte Esterase 1+ (NEGATIVE) H Urine RBC 0-2 /HPF (0 - 0) H Urine WBC 0-2 /HPF (0 - 0) Urine Squamous Epithelial Cells None /LPF (NONE/OCC) Urine Bacteria Few /HPF (NONE) Urine Opiates Screen Negative (NEGATIVE) Urine Barbiturates Screen Negative (NEGATIVE) Phencyclidine (PCP) Screen Negative (NEGATIVE) Urine Amphetamines Screen Positive (NEGATIVE) H Urine Benzodiazepines Screen Positive (NEGATIVE) H Urine Cocaine Screen Negative (NEGATIVE) Urine Marijuana (THC) Screen Positive (NEGATIVE) H Micky Oliveira MD Dec 21, 2017 16:25
--- NOTE | 2017-12-21 19:30 | Consultation ---
DATE OF CONSULTATION: 12/21/2017 CARDIOLOGY CONSULTATION CONSULTING PHYSICIAN: Micky Oliveira M.D. REFERRING PHYSICIAN: Shena Recio M.D. REASON FOR CONSULTATION: Chest pain. HISTORY OF PRESENT ILLNESS: The patient is a 42-year-old, gentleman with history of diabetes and HIV and adrenal insufficiency as well as history of inguinal hernia repair, presented to emergency room with acute onset of chest pain that has been going on for about a couple of weeks. The pain was worse on the presentation and also occurring at rest as well as exertion with radiation to his arm. He was recently at the [facility] when he was detoxed from methamphetamine abuse and was discharged on 12/16/2017. The patient also was in [facility] three days ago with a CT scan revealing 3 mm left lower lobe nodule. The patient was seen by , was sent to the emergency room with the chest pain. REVIEW OF SYSTEMS: Performed and was negative other than what was mentioned in the history of present illness. PAST MEDICAL HISTORY: As mentioned above. FAMILY HISTORY: Noncontributory. SOCIAL HISTORY: Smoking about half a pack a day for the last 20 years. Denies doing any drugs. MEDICATIONS: Per reconciliation. PHYSICAL EXAMINATION: VITAL SIGNS: Blood pressure is 102/52, pulse 72, respirations 18, and temperature 97.9. HEAD AND NECK: No JVD. LUNGS: Clear. CARDIOVASCULAR: Regular S1 and S2 with no gallop. ABDOMEN: Soft. EXTREMITIES: No pitting edema. LABORATORY DATA: His labs show white count of 5.3, hemoglobin 12.9, hematocrit 38, and platelet count of 224. Sodium 143, potassium 4.2, BUN of 20, creatinine 1.1. Troponin is negative x3. ASSESSMENT AND PLAN: 1. Chest pain in a patient with human immunodeficiency virus and diabetes. The patient was ruled out for myocardial infarction by serial cardiac enzymes. His echocardiogram showed ejection fraction of 60% to 65%. His EKG also showed normal sinus rhythm, normal electrocardiogram. We will proceed with nuclear stress test for further evaluation and management. We will check fasting lipid profile. 2. Human immunodeficiency virus, on anti-retroviral therapy. 3. Hyperlipidemia, on Lipitor. 4. History of diabetes, he is currently off diabetic medication. Thank you very much, Dr. Recio, for allowing me to participate in the care of this patient. Please do not hesitate to contact me for any questions regarding my evaluation. Micky Oliveira M.D. DR: MARIBELL JOB#: [id number] CC:
[2017-12-21 20:00] VITALS: BP 102/67
[2017-12-21] MEDS: Norco 5mg/325mg tab ORAL SCH ×2 (20:41→21:00)
[2017-12-21] MEDS: Atorvastatin 80mg tab ORAL SCH (20:42)
[2017-12-21] MEDS ORDERED: Morphine Sulfate 4mg/ml Inj IVP SCH (21:15)
[2017-12-22] VITALS: BP 100/65
[2017-12-22 04:00] VITALS: BP 90/60
[2017-12-22] MEDS: DiphenhydrAMINE 50mg/ml Inj IVP PRN (04:26)
[2017-12-22 04:41] LABS: ALANINE AMINOTRANSFERASE 70 U/L (12-78); ALBUMIN 3.4 G/DL (3.4-5.0); ALBUMIN/GLOBULIN RATIO 0.9 (1.0-2.7); ALKALINE PHOSPHATASE 80 U/L (46-116); ANION GAP 5 mmol/L (5-15); ASPARTATE AMINO TRANSFERASE 19 U/L (15-37); BILIRUBIN,TOTAL 0.2 MG/DL (0.2-1.0); BLOOD UREA NITROGEN 23 mg/dL (7-18); CALCIUM 8.6 MG/DL (8.5-10.1); CARBON DIOXIDE 29 MMOL/L (21-32); CHLORIDE 105 MMOL/L (98-107); CREATININE 1.2 MG/DL (0.55-1.30); POTASSIUM 4.2 MMOL/L (3.5-5.1); SODIUM 139 MMOL/L (136-145)
[2017-12-22] MEDS: HYDROcodone/Acetamin 10/325 tab ORAL SCH (06:16)
[2017-12-22 08:00] VITALS: BP 97/64
[2017-12-22] MEDS ORDERED: Lexiscan 0.4mg/5ml syringe IV PRN (09:00)
[2017-12-22] MEDS: Epzicom tab ORAL SCH (09:02)
[2017-12-22] MEDS: Dolutegravir Sodium 50mg tab ORAL SCH (09:02)
[2017-12-22] MEDS: BuPROPion XL 300mg tab ORAL SCH (09:02)
[2017-12-22] MEDS: Aspirin EC 81mg tab ORAL SCH (09:02)
[2017-12-22] MEDS: Bisacodyl EC 5mg tab ORAL SCH (09:02)
[2017-12-22] MEDS: ULORIC 40 MG ORAL SCH (09:03)
--- NOTE | 2017-12-22 09:11 | Physician Query ---
--------- THIS DOCUMENT IS A PERMANENT PART OF THE MEDICAL RECORD --------- PLEASE COMPLETE THE DOCUMENT BEFORE SIGNING Dear NADIA Mckeon Date 12/22/17 Demi Chef/CDS' Name Saud Minor Demi Chef/CDS Phone#: [phone] Exercise your independent professional judgment when responding to query. Questions asked do not imply particular answer is desired or expected. We greatly appreciate your clarification on this issue. Clinical Documentation States: H & P (12/21/17):"Chest pain r/o ACS" Cardiology Progress Note: Dr. Oliveira (12/21/17) "The patient was ruled out for myocardial infarction by serial cardiac enzymes. His echocardiogram showed ejection fraction of 60% to 65%. His EKG also showed normal sinus rhythm, normal electrocardiogram." Clinical Findings Show: EKG =normal sinus rhythm, normal electrocardiogram Troponin = 0.000, 0.000, 0.000 O2% = 95, 99, 99 ECHO, EF = 60% - 65% Please document the suspected etiology of Chest Pain: a.Type: []Cardiac []Non-cardiac []Unspecified b.Etiology - cardiac [] Aortic dissection []Mitral valve prolapsed [] Acute myocardial infarction []Spasm of coronary arteries [] Coronary Artery Disease []Pericarditis c.Etiology - non-cardiac [] Anxiety []Pleurisy [] Cancer []Pneumonia, type [] Costochondritis []Pneumothorax [] GERD/Esophagitis []Pulmonary embolism [] Unable to determine []Other: Dr. NADIA RODRIGUEZ Date/Time MTDD
[2017-12-22 12:00] VITALS: BP 110/74
--- NOTE | 2017-12-22 13:59 | General Progress Note ---
Assessment/Plan Problem List: (1) Abdominal pain ICD Codes: R10.9 - Unspecified abdominal pain SNOMED: 23843430 Qualifiers: Qualified Codes: R10.84 - Generalized abdominal pain (2) Chest pain ICD Codes: R07.9 - Chest pain, unspecified SNOMED: 88593558 (3) Hypotension ICD Codes: I95.9 - Hypotension, unspecified SNOMED: 11615869 (4) Addisons disease ICD Codes: E27.1 - Primary adrenocortical insufficiency SNOMED: 349205011 (5) HIV on HAART (6) Crohns disease ICD Codes: K50.90 - Crohn's disease, unspecified, without complications SNOMED: 65072786 (7) H/O inguinal hernia repair ICD Codes: Z98.890 - Other specified postprocedural states; Z87.19 - Personal history of other diseases of the digestive system SNOMED: 33433450, 209637360 (8) Scrotal swelling and pain (9) DM2 (diabetes mellitus, type 2) ICD Codes: E11.9 - Type 2 diabetes mellitus without complications SNOMED: 25155536 (10) Pulmonary nodule ICD Codes: R91.1 - Solitary pulmonary nodule SNOMED: 635841861 Status: stable Assessment/Plan Appreciate cardiology rec's Trop neg x 3. EKG unremarkable TTE showed normal EF Awaiting nuclear stress test. Re-attempt tomorrow per cardiology ASA, statin Gen surgery consulted for abd pain eval Trial of PPI + mylanta PRN Follow-up with pcp for evaluation of lung nodule - 3 cm nodule in the left lower lobe RACHNA Restart home cortef. Pt instructed to follow-up with endocrinology Dr. Ramiro GORMAN pending cardiology clearance Subjective Date patient seen: Dec 22, 2017 Time patient seen: 13:59 ROS Limited/Unobtainable: No Constitutional: Reports: weakness HEENT: Reports: no symptoms Cardiovascular: Reports: chest pain Respiratory: Reports: no symptoms Gastrointestinal/Abdominal: Reports: abdominal pain Genitourinary: Reports: pain Neurologic/Psychiatric: Reports: no symptoms Endocrine: Reports: no symptoms Hematologic/Lymphatic: Reports: no symptoms Allergies: Coded Allergies: No Known Allergies (Unverified , 01/06/17) All Systems: reviewed and negative except above Subjective No acute o/n events Nuclear stress test canceled today given hypotension Pt states chest pain has now migrated lower to upper to mid abd and notes "burning sensation". States has h/o GI ulcers and was on PPI but no longer takes. Denies f/c, n/v, d/c, SOB. Cont to c/o scrotal swelling and some pain. Objective Last 24 Hour Vital Signs Date Time Temp Pulse Resp B/P (MAP) Pulse Ox O2 Delivery O2 Flow Rate FiO2 12/22/17 12:00 97.9 70 17 110/74 99 Room Air 97.9 12/22/17 10:09 Room Air 21 12/22/17 08:00 86 12/22/17 08:00 97.0 68 17 97/64 99 Room Air 97.0 12/22/17 04:00 97.0 73 18 90/60 100 Room Air 97.0 12/22/17 03:43 73 12/22/17 00:00 97.5 71 20 100/65 97 Room Air 97.5 12/21/17 23:50 74 12/21/17 20:00 74 12/21/17 20:00 97.9 78 18 102/67 99 Room Air 97.9 12/21/17 20:00 Room Air 21 12/21/17 16:00 81 12/21/17 16:00 97.8 75 20 103/68 100 Room Air 97.8 Intake and Output 12/21/17 12/22/17 19:00 07:00 Intake Total 910 ml 400 ml Balance 910 ml 400 ml Intake Oral 910 ml 400 ml # Voids 1 Laboratory Tests 12/22/17 04:05: Sodium Level 139, Potassium Level 4.2, Chloride Level 105, Carbon Dioxide Level 29, Anion Gap 5, Blood Urea Nitrogen 23H, Creatinine 1.2, Estimat Glomerular Filtration Rate > 60, Glucose Level 94, Calcium Level 8.6, Total Bilirubin 0.2, Aspartate Amino Transf (AST/SGOT) 19, Alanine Aminotransferase (ALT/SGPT) 70, Alkaline Phosphatase 80, Troponin I 0.008, Total Protein 7.0, Albumin 3.4, Globulin 3.6, Albumin/Globulin Ratio 0.9L 12/22/17 12:00: Troponin I 0.000 Height (Feet): 5 Height (Inches): 4.00 Weight (Pounds): 197 Objective General: alert, cooperative, no distress, appears stated age Head: normocephalic, without obvious abnormality, atraumatic Eyes: conjunctivae/corneas clear. PERRL, EOM's intact Throat: lips, mucosa, and tongue normal. MMM Neck: supple, symmetrical, trachea midline, and no JVD Lungs: clear to auscultation bilaterally Heart: regular rate and rhythm, S1, S2 normal, no murmur, click, rub or gallop Abdomen: soft, +TTP of upper/mid abd, non-distended, bowel sounds normal; no masses or organomegaly Extremities: extremities normal, atraumatic, no cyanosis or edema Pulses: 2+ and symmetric Skin: skin color, texture, turgor normal; no rashes or lesions Neurologic: grossly normal, no focal deficits Kayla Machado M.D. Dec 22, 2017 13:59
--- NOTE | 2017-12-22 14:49 | Cardiac Electrophysiology PN ---
Assessment/Plan Assessment/Plan 1. Chest pain in a patient with human immunodeficiency virus and diabetes. Ruled out for myocardial infarction. His echocardiogram showed ejection fraction of 60% to 65%. His EKG also showed normal sinus rhythm, normal electrocardiogram. We reschedule nuclear stress test in am 2. Human immunodeficiency virus, on anti-retroviral therapy. 3. Hyperlipidemia, on Lipitor. 4. History of diabetes, he is currently off diabetic medication. Subjective Subjective Couldn't complete the stress test for hypotension. Objective Last 24 Hour Vital Signs Date Time Temp Pulse Resp B/P (MAP) Pulse Ox O2 Delivery O2 Flow Rate FiO2 12/22/17 12:00 97.9 70 17 110/74 99 Room Air 97.9 12/22/17 12:00 71 12/22/17 10:09 Room Air 21 12/22/17 08:00 86 12/22/17 08:00 97.0 68 17 97/64 99 Room Air 97.0 12/22/17 04:00 97.0 73 18 90/60 100 Room Air 97.0 12/22/17 03:43 73 12/22/17 00:00 97.5 71 20 100/65 97 Room Air 97.5 12/21/17 23:50 74 12/21/17 20:00 74 12/21/17 20:00 97.9 78 18 102/67 99 Room Air 97.9 12/21/17 20:00 Room Air 21 12/21/17 16:00 81 12/21/17 16:00 97.8 75 20 103/68 100 Room Air 97.8 Intake and Output 12/21/17 12/22/17 19:00 07:00 Intake Total 910 ml 400 ml Balance 910 ml 400 ml Intake Oral 910 ml 400 ml # Voids 1 Laboratory Tests Test 12/22/17 04:05 12/22/17 12:00 Sodium Level 139 MMOL/L (136-145) Potassium Level 4.2 MMOL/L (3.5-5.1) Chloride Level 105 MMOL/L (98-107) Carbon Dioxide Level 29 MMOL/L (21-32) Anion Gap 5 mmol/L (5-15) Blood Urea Nitrogen 23 mg/dL (7-18) H Creatinine 1.2 MG/DL (0.55-1.30) Estimat Glomerular Filtration Rate > 60 mL/min (>60) Glucose Level 94 MG/DL (74-106) Calcium Level 8.6 MG/DL (8.5-10.1) Total Bilirubin 0.2 MG/DL (0.2-1.0) Aspartate Amino Transf (AST/SGOT) 19 U/L (15-37) Alanine Aminotransferase (ALT/SGPT) 70 U/L (12-78) Alkaline Phosphatase 80 U/L (46-116) Troponin I 0.008 ng/mL (0.000-0.056) 0.000 ng/mL (0.000-0.056) Total Protein 7.0 G/DL (6.4-8.2) Albumin 3.4 G/DL (3.4-5.0) Globulin 3.6 g/dL Albumin/Globulin Ratio 0.9 (1.0-2.7) L Objective HEAD AND NECK: No JVD. LUNGS: Clear. CARDIOVASCULAR: Regular S1 and S2 with no gallop. ABDOMEN: Soft. EXTREMITIES: No pitting edema. Micky Oliveira MD Dec 22, 2017 14:49
[2017-12-22] MEDS: Pantoprazole Inj IVP SCH ×2 (14:57→21:02)
[2017-12-22 16:00] VITALS: BP 98/65
[2017-12-22 20:00] VITALS: BP 115/64
[2017-12-22] MEDS: Atorvastatin 80mg tab ORAL SCH (21:02)
[2017-12-22] MEDS: Norco 5mg/325mg tab ORAL SCH (21:03)
[2017-12-23] VITALS: BP 107/66
[2017-12-23] MEDS: HYDROcodone/Acetamin 10/325 tab ORAL SCH (06:33)
[2017-12-23 08:00] VITALS: BP 131/81
[2017-12-23] MEDS: Bisacodyl EC 5mg tab ORAL SCH (08:34)
[2017-12-23] MEDS: Aspirin EC 81mg tab ORAL SCH (08:34)
[2017-12-23] MEDS: BuPROPion XL 300mg tab ORAL SCH (08:34)
[2017-12-23] MEDS: Pantoprazole Inj IVP SCH ×2 (08:34→21:41)
[2017-12-23] MEDS: Epzicom tab ORAL SCH (08:34)
[2017-12-23] MEDS: Dolutegravir Sodium 50mg tab ORAL SCH (08:34)
[2017-12-23] MEDS: ULORIC 40 MG ORAL SCH (08:36)
[2017-12-23 11:49] LABS: ALANINE AMINOTRANSFERASE 66 U/L (12-78); ALBUMIN 4.2 G/DL (3.4-5.0); ALKALINE PHOSPHATASE 86 U/L (46-116); ANION GAP 7 mmol/L (5-15); ASPARTATE AMINO TRANSFERASE 22 U/L (15-37); BILIRUBIN,TOTAL 0.3 MG/DL (0.2-1.0); BLOOD UREA NITROGEN 21 mg/dL (7-18); CALCIUM 8.9 MG/DL (8.5-10.1); CARBON DIOXIDE 30 MMOL/L (21-32); CHLORIDE 99 MMOL/L (98-107); CREATININE 1.3 MG/DL (0.55-1.30); POTASSIUM 4.3 MMOL/L (3.5-5.1); SODIUM 136 MMOL/L (136-145)
[2017-12-23 12:00] VITALS: BP 108/64
--- NOTE | 2017-12-23 13:05 | Cardiology Report ---
APPROVED REPORT EXAM: Two-dimensional and M-mode echocardiogram with Doppler and color Doppler. INDICATION Angina pectoris M-Mode DIMENSIONS IVSd1.2 (0.7-1.1cm)Left Atrium (MM)3.3 (1.6-4.0cm) LVDd4.2 (3.5-5.6cm)Aortic Root2.9 (2.0-3.7cm) PWd1.1 (0.7-1.1cm)Aortic Cusp Exc.2.0 (1.5-2.0cm) LVDs3.0 (2.5-4.0cm) PWs1.2 cm Technically difficult study due to poor acoustical windows. Normal left ventricular chamber size, systolic function and wall motion. Left ventricular ejection fraction estimated to be 50-55%. Mild left ventricular hypertrophy. No evidence of pericardial or pleural effusion. All other cardiac chamber sizes are within normal limits. Focal aortic valve sclerosis with adequate cusp excursion. Thickened mitral valve leaflets with normal excursion. Mild mitral annulus and aortic root calcification. Pulmonic valve not well visualized. Normal tricuspid valve structure. IVC is normal in size and collapsible with respiration. A color flow and spectral Doppler study was performed and revealed: No aortic regurgitation. No mitral regurgitation. Normal mitral diastolic function. Trace tricuspid regurgitation.
--- NOTE | 2017-12-23 13:38 | Diagnostic Imaging Report ---
Indications: Chest pain Technique: Single day single isotope protocol utilized. Initially, resting images obtained using IV administration 9.9 millicuries 99M technetium Myoview. Subsequently, patient underwent adenosine stress testing. See cardiology report for details. During adenosine infusion, IV administration 32 mCi 99 M technetium Myoview. SPECT and planar images obtained. SPECT images gated to 8 phases of the cardiac cycle were also obtained, and reformatted into cine images for evaluation of ejection fraction. Comparison: none Findings: Per cardiology report, patient experienced flushing, lightheadedness, chest pain, and shortness of breath. Per cardiology report, resting EKG demonstrates normal sinus rhythm. No EKG changes are reported during infusion. Imaging demonstrates normal poststress perfusion, no fixed or reversible perfusion defects. Normal cardiac chamber size. Calculated post stress ejection fraction 65%. No focal wall motion abnormality Impression: Nonischemic clinical response to pharmacologic stress, per cardiology report Nonischemic electrocardiographic response to pharmacologic stress, per cardiology report No imaging findings to suggest ischemia, at level of stress achieved. Calculated post stress ejection fraction 65%
--- NOTE | 2017-12-23 15:13 | Consultation ---
History of Present Illness General Date patient seen: Dec 23, 2017 Chief Complaint: Pain Present Illness HPI 42 year old male with pmhx of HIV, DM, adrenal insufficiency and history of IHR who presented to emergency department complaining of acute onset of chest pain. Patient states that he has had chest pain intermittently for a couple weeks but the pain got worse on the day of presentation. He notes sharp occurring at rest and with exertion radiating to his arm. he notes that when he feels stressed the pain gets worse. He has been admitted recently to [facility] where he was detoxing from methamphetamine abuse. he was discharged from [facility] on 12/16. He went to see his primary care physician Dr. Heron iLlly and then was told to come emergency department for his chest pain. During admission noted to have acute abdominal intermittent pain that was described as generalized abdominal sharp pain. surgery called to evaluate. patient seen, chart reviewed, patient examined. Allergies: Coded Allergies: No Known Allergies (Unverified , 01/06/17) Medication History Scheduled Bisacodyl* (Dulcolax*), 5 MG ORAL DAILY, (Reported) Bupropion Hcl* (Wellbutrin Xl*), 150 MG ORAL BID, (Reported) Ergocalciferol (Vitamin D2) (Vitamin D2), 2,000 UNIT PO ONCE A MONTH, (Reported) Febuxostat (Uloric), 40 MG ORAL DAILY, (Reported) Hydrocodone Bit/Acetaminophen 5-325* (Orange 5-325*), 1 TAB ORAL BEDTIME, ( Reported) Hydrocodone/Acetaminophen (Hydrocodon-Acetaminophn 10-325), 1 TAB ORAL ACBREAKFAST, (Reported) Ibuprofen* (Motrin*), 800 MG ORAL THREE TIMES A DAY, (Reported) [Triumeq], 300 MG PO DAILY, (Reported) Scheduled PRN Albuterol Sulfate (Ventolin Hfa), 2 PUFFS INH EVERY 6 HOURS PRN for Shortness of Breath, (Reported) Diphenhydramine Hcl (Banophen), 25 MG PO BID PRN for Itching, (Reported) Discontinued Medications Bupropion HCl (Wellbutrin Xl), 300 MG ORAL DAILY, (Reported) Discontinued Reason: Medication dose changed Hydrocodone Bit/Acetaminophen 5-325* (Orange 5-325*), 1 TAB ORAL Q4H PRN for For Pain, (Reported) Discontinued Reason: Therapy completed Patient History History Provided By: Patient, Medical Record, PMD Healthcare decision maker Resuscitation status Full Code Advanced Directive on File Past Medical/Surgical History Past Medical/Surgical History: (1) Abdominal pain (2) Drug abuse (3) ACS (acute coronary syndrome) Review of Systems All Other Systems: negative except mentioned in HPI Physical Exam General Appearance: no apparent distress Lines, tubes and drains: peripheral HEENT: normocephalic, PERRL Neck: normal inspection Respiratory/Chest: lungs clear, normal breath sounds, no respiratory distress, no accessory muscle use Cardiovascular/Chest: normal peripheral pulses Abdomen: normal bowel sounds, non tender, soft, no organomegaly, no mass Extremities: normal range of motion, non-tender Skin Exam: normal pigmentation Neurologic: alert, oriented x 3 Last 24 Hour Vital Signs Date Time Temp Pulse Resp B/P (MAP) Pulse Ox O2 Delivery O2 Flow Rate FiO2 12/23/17 12:00 97.5 75 18 108/64 95 Room Air 97.5 12/23/17 09:34 78 16 Room Air 21 12/23/17 08:00 97.3 63 18 131/81 95 Room Air 97.3 12/23/17 08:00 66 12/23/17 07:40 Room Air 12/23/17 03:47 67 12/23/17 00:00 97.5 71 20 107/66 95 Room Air 97.5 12/22/17 23:40 71 12/22/17 20:00 98.0 78 20 115/64 94 Room Air 98.0 12/22/17 19:40 74 12/22/17 16:00 72 12/22/17 16:00 97.9 70 16 98/65 94 Room Air 97.9 Intake and Output 12/22/17 12/23/17 19:00 07:00 Intake Total 600 ml Balance 600 ml Intake Oral 600 ml # Voids 2 1 Laboratory Tests Test 12/22/17 20:00 12/23/17 11:10 Troponin I 0.000 ng/mL (0.000-0.056) Sodium Level 136 MMOL/L (136-145) Potassium Level 4.3 MMOL/L (3.5-5.1) Chloride Level 99 MMOL/L (98-107) Carbon Dioxide Level 30 MMOL/L (21-32) Anion Gap 7 mmol/L (5-15) Blood Urea Nitrogen 21 mg/dL (7-18) H Creatinine 1.3 MG/DL (0.55-1.30) Estimat Glomerular Filtration Rate > 60 mL/min (>60) Glucose Level 88 MG/DL (74-106) Calcium Level 8.9 MG/DL (8.5-10.1) Total Bilirubin 0.3 MG/DL (0.2-1.0) Aspartate Amino Transf (AST/SGOT) 22 U/L (15-37) Alanine Aminotransferase (ALT/SGPT) 66 U/L (12-78) Alkaline Phosphatase 86 U/L (46-116) Total Protein 8.4 G/DL (6.4-8.2) H Albumin 4.2 G/DL (3.4-5.0) Globulin 4.2 g/dL Albumin/Globulin Ratio 1.0 (1.0-2.7) Height (Feet): 5 Height (Inches): 4.00 Weight (Pounds): 197 Medications Current Medications Medications (Trade) Dose Ordered Sig/Sudheer Route PRN Reason Start Time Stop Time Status Last Admin Dose Admin Abacavir/ Lamivudine (Epzicom) 1 tab DAILY ORAL 12/22/17 09:00 01/21/18 08:59 12/23/17 08:34 Acetaminophen/ Hydrocodone Bitart (Orange 10/325) 1 tab ACBREAKFAST ORAL 12/22/17 06:30 12/29/17 06:29 12/23/17 06:33 Acetaminophen/ Hydrocodone Bitart (Orange 5/325) 1 tab BEDTIME ORAL 12/21/17 21:00 12/28/17 20:59 12/22/17 21:03 Al Hydroxide/Mg Hydroxide (Mylanta) 30 ml Q6H PRN ORAL heartburn 12/22/17 14:15 01/21/18 14:14 12/23/17 13:02 Albuterol Sulfate (Proventil MDI) 1 puff EVERY 6 HOURS PRN INH Shortness of Breath 12/21/17 09:00 01/20/18 08:59 Aspirin (Ecotrin) 81 mg DAILY ORAL 12/22/17 09:00 01/21/18 08:59 12/23/17 08:34 Atorvastatin Calcium (Lipitor) 80 mg BEDTIME ORAL 12/21/17 21:00 01/20/18 20:59 12/22/17 21:02 Bisacodyl (Dulcolax) 5 mg DAILY ORAL 12/21/17 10:00 01/20/18 09:59 12/23/17 08:34 Bupropion HCl (Wellbutrin XL) 300 mg DAILY ORAL 12/21/17 09:00 01/20/18 08:59 12/23/17 08:34 Diphenhydramine HCl (Benadryl) 25 mg BID PRN ORAL Itching 12/21/17 09:00 01/20/18 08:59 12/23/17 08:34 Diphenhydramine HCl (Benadryl) 25 mg Q6H PRN IVP Itching 12/21/17 12:00 01/20/18 11:59 12/22/17 04:26 Dolutegravir Sodium (Tivicay) 50 mg DAILY ORAL 12/22/17 09:00 01/21/18 08:59 12/23/17 08:34 Ergocalciferol (Drisdol) 50,000 intlu QWEEK ORAL 12/26/17 09:00 01/25/18 08:59 Hydrocortisone (Cortef) 5 mg BEDTIME ORAL 12/22/17 21:00 01/21/18 20:59 12/22/17 21:04 Hydrocortisone (Cortef) 10 mg ACBREAKFAST ORAL 12/23/17 06:30 01/22/18 06:29 12/23/17 06:32 Ibuprofen (Advil) 800 mg THREE TIMES A DAY PRN ORAL Moderate Pain (Pain Scale 4-6) 12/21/17 09:00 01/20/18 08:59 Pantoprazole (Protonix) 40 mg EVERY 12 HOURS IVP 12/22/17 14:30 01/21/18 14:29 12/23/17 08:34 Patient Own Medication (Patient's Own Med) 1 ea DAILY ORAL 12/22/17 09:00 01/21/18 08:59 12/23/17 08:36 Assessment/Plan Problem List: (1) Abdominal pain Assessment & Plan: noted to have acute abdominal pain upon admission for chest pain. concerns for possible embolic or thrombotic etiology. surgery called fortunately pain resolved and he has not noted any abdominal pain since. episode resolved currently comfortable. no n/v/f/c. labs okay -okay for diet -will monitor clinically -thank you for this consultation. will follow with recs. ICD Codes: R10.9 - Unspecified abdominal pain SNOMED: [id number] Qualifiers: Qualified Codes: R10.84 - Generalized abdominal pain Gage Powell Dec 23, 2017 15:13
--- NOTE | 2017-12-23 15:44 | Cardiac Electrophysiology PN ---
Assessment/Plan Assessment/Plan 1. Chest pain in a patient with human immunodeficiency virus and diabetes. Ruled out for myocardial infarction. His echocardiogram showed ejection fraction of 60% to 65%. His EKG also showed normal sinus rhythm, normal electrocardiogram. Nuclear stress test nonischemic 2. Human immunodeficiency virus, on anti-retroviral therapy. 3. Hyperlipidemia, on Lipitor. 4. History of diabetes, he is currently off diabetic medication. 5. Testicular pain getting US Subjective Subjective Completed the stress test. Having testicular US now.. Objective Last 24 Hour Vital Signs Date Time Temp Pulse Resp B/P (MAP) Pulse Ox O2 Delivery O2 Flow Rate FiO2 12/23/17 12:00 97.5 75 18 108/64 95 Room Air 97.5 12/23/17 09:34 78 16 Room Air 21 12/23/17 08:00 97.3 63 18 131/81 95 Room Air 97.3 12/23/17 08:00 66 12/23/17 07:40 Room Air 12/23/17 03:47 67 12/23/17 00:00 97.5 71 20 107/66 95 Room Air 97.5 12/22/17 23:40 71 12/22/17 20:00 98.0 78 20 115/64 94 Room Air 98.0 12/22/17 19:40 74 12/22/17 16:00 72 12/22/17 16:00 97.9 70 16 98/65 94 Room Air 97.9 Intake and Output 12/22/17 12/23/17 19:00 07:00 Intake Total 600 ml Balance 600 ml Intake Oral 600 ml # Voids 2 1 Laboratory Tests Test 12/22/17 20:00 12/23/17 11:10 Troponin I 0.000 ng/mL (0.000-0.056) Sodium Level 136 MMOL/L (136-145) Potassium Level 4.3 MMOL/L (3.5-5.1) Chloride Level 99 MMOL/L (98-107) Carbon Dioxide Level 30 MMOL/L (21-32) Anion Gap 7 mmol/L (5-15) Blood Urea Nitrogen 21 mg/dL (7-18) H Creatinine 1.3 MG/DL (0.55-1.30) Estimat Glomerular Filtration Rate > 60 mL/min (>60) Glucose Level 88 MG/DL (74-106) Calcium Level 8.9 MG/DL (8.5-10.1) Total Bilirubin 0.3 MG/DL (0.2-1.0) Aspartate Amino Transf (AST/SGOT) 22 U/L (15-37) Alanine Aminotransferase (ALT/SGPT) 66 U/L (12-78) Alkaline Phosphatase 86 U/L (46-116) Total Protein 8.4 G/DL (6.4-8.2) H Albumin 4.2 G/DL (3.4-5.0) Globulin 4.2 g/dL Albumin/Globulin Ratio 1.0 (1.0-2.7) Objective HEAD AND NECK: No JVD. LUNGS: Clear. CARDIOVASCULAR: Regular S1 and S2 with no gallop. ABDOMEN: Soft. EXTREMITIES: No pitting edema. Micky Oliveira MD Dec 23, 2017 15:44
[2017-12-23 16:00] VITALS: BP 103/68
[2017-12-23] MEDS ORDERED: PROTONIX40 MG ORAL (17:02)
[2017-12-23] MEDS: Atorvastatin 80mg tab ORAL SCH (21:39)
[2017-12-23] MEDS: Norco 5mg/325mg tab ORAL SCH (21:41)
[2017-12-24] VITALS: BP 103/59
[2017-12-24] MEDS: HYDROcodone/Acetamin 10/325 tab ORAL SCH (06:08)
--- NOTE | 2017-12-24 08:15 | Consultation ---
DATE OF CONSULTATION: 12/24/2017 CONSULTING PHYSICIAN: Ervin Rubio M.D. REFERRING PHYSICIAN: Shena Recio M.D. REASON FOR CONSULTATION: Adrenal insufficiency. HISTORY OF PRESENT ILLNESS: The patient is a 42-year-old male, HIV positive, who is known to me from previous admission to [facility]. I diagnosed him with adrenal insufficiency in June 2017, and since then, he has been supposed to be on hydrocortisone 10 milligram in the morning, 5 milligram in the evening. The patient has been taking this medication off and on. Presented to the hospital at [facility] with complaint of chest pain, admitted for rule out acute coronary syndrome. I was called to manage adrenal insufficiency. PAST MEDICAL HISTORY: 1. HIV. 2. Diabetes. 3. Adrenal insufficiency. 4. Inguinal hernia repair. ALLERGIES TO MEDICATIONS: None. MEDICATIONS: Medications as an outpatient reviewed and reconciled. REVIEW OF SYSTEMS: As per HPI. SOCIAL HISTORY: Denies any smoking, alcohol, or drug use. FAMILY HISTORY: Noncontributory. LABORATORY VALUES: WBC 5.6, hemoglobin 12.9, hematocrit 37.9, and platelets of 224,000. Sodium is 136, potassium 4.2, chloride 99, bicarbonate 30, BUN 21, creatinine 1.2, glucose of 88. DIAGNOSES: 1. Chest pain, ischemic event had been ruled out. 2. Hyperlipidemia. 3. Testicular pain. 4. Adrenal insufficiency. PLAN: The patient needs to be treated with hydrocortisone maintenance dose 10 milligram and 5 milligram p.m. The importance of adherence to Cortef was emphasized with the patient. Also I recommended him to wear a medical alert bracelet stating that he has adrenal insufficiency. I provided him with my business card so he can call and make an appointment for followup visit. We plan to repeat Cortrosyn stimulation test as an outpatient. Thank you Dr. Recio for the courtesy of this consultation. Ervin Rubio M.D. DR: Alexandr JOB#: [id number] CC: RAHUL
[2017-12-24] MEDS: Dolutegravir Sodium 50mg tab ORAL SCH (08:26)
[2017-12-24] MEDS: Bisacodyl EC 5mg tab ORAL SCH (08:26)
[2017-12-24] MEDS: BuPROPion XL 300mg tab ORAL SCH (08:27)
[2017-12-24] MEDS: Epzicom tab ORAL SCH (08:27)
[2017-12-24] MEDS: Aspirin EC 81mg tab ORAL SCH (08:27)
[2017-12-24] MEDS: Pantoprazole Inj IVP SCH (08:27)
[2017-12-24] MEDS: ULORIC 40 MG ORAL SCH (08:44)
--- NOTE | 2017-12-24 13:48 | Diagnostic Imaging Report ---
Indication: Intermittent left-sided testicular pain. Technique: US Testicular Scrotum Comparison: None Findings: Right testicle measures 4.1 x 2 x 3.1 cm. Left testicle measures 3.5 x 1.5 x 2.8 cm. No evidence to suggest testicular torsion. Color flow to the bilateral testicles is noted. Testicular echogenicity is homogeneous. No testicular masses identified. Prominent bilateral inguinal lymph nodes are noted. There are indeterminate subcentimeter hypoechoic foci adjacent to the left epididymal head which may be postsurgical in etiology. There is trace left hydrocele. IMPRESSION: No definite evidence to suggest testicular torsion at this time. Nonspecific bilateral inguinal lymph nodes. Indeterminate subcentimeter hypoechoic foci adjacent to the left epididymal head. Possibly postsurgical. Clinical correlation and follow-up exam recommended. Trace left hydrocele. This corresponds with the statrad preliminary report.
--- NOTE | 2017-12-24 17:13 | Discharge Summary ---
Discharge Summary Hospital Course Date of Admission Dec 20, 2017 at 19:35 Date of Discharge Dec 24, 2017 at 11:12 Admitting Diagnosis chest pain, r/o ACS Reason for Hospitalization: chest pain, r/o ACS HPI 42 year old male with past medical history significant for HIV, DM, adrenal insufficiency attributed to HIV, s/p inguinal hernia repair presents emergency department tcomplaining of acute onset of chest pain. Patient states that he has had chest pain intermittently for a couple weeks but the pain got worse on the day of presentation. He notes sharp occuring at rest and with exertion radaiting to his arm. he notes that when he feels stressed the pain gets worse. 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 [facility] He also was seen at [facility] 2 days ago where he had a CAT scan and revealed a 3 mm left lower lobe nodule.. He went to see his primary care physician Dr. Heron Lilly and then was told to come emergency department for his chest pain. He denies any leg pain leg swelling. Denies having recent stress test. . Patient denies any cough runny nose or sore throat.No other modifying factors. No other associated signs and symptoms. patient also complains of scrotal discomfort. he has history of inguinal hernia repair Consultations Cardiology, Surgery Hospital Course Pt was admitted and ruled out for ACS with serial trop/EKG. Given risk factors, he underwent nuclear stress test which was unremarkable. Pt with episodes of hypotension and was resumed on his steroids for adrenal insufficiency w/ improvement. Chest pain appears atypical and improved with PPI, so likely GI etiology such as GERD or dyspepsia. Pt also with scrotal swelling and pain. U/S scrotum showed no e/o testicular torsion. Discharge Medications New Medications: Pantoprazole* (Protonix*) 40 Mg Tablet. 40 MG ORAL DAILY for 30 Days, #30 TAB 2 Refills Continued Medications: Albuterol Sulfate (Ventolin Hfa) 18 Gm Hfa.aer.ad 2 PUFFS INH EVERY 6 HOURS PRN for Shortness of Breath (This prescription has been renewed) Bisacodyl* (Dulcolax*) 5 Mg Tablet. 5 MG ORAL DAILY (This prescription has been renewed) Bupropion Hcl* (Wellbutrin Xl*) 150 Mg Tab.er.24h 150 MG ORAL BID (This prescription has been renewed) Diphenhydramine Hcl (Banophen) 25 Mg Capsule 25 MG PO BID PRN for Itching (This prescription has been renewed) Ergocalciferol (Vitamin D2) (Vitamin D2) 2,000 Unit Tablet 2000 UNIT PO ONCE A MONTH, TAB (This prescription has been renewed) Febuxostat (Uloric) 40 Mg Tablet 40 MG ORAL DAILY (This prescription has been renewed) Hydrocodone Bit/Acetaminophen 5-325* ([place] 5-325*) 1 Each Tablet 1 TAB ORAL BEDTIME, TAB 0 Refills (This prescription has been renewed) Hydrocodone/Acetaminophen (Hydrocodon-Acetaminophn 10-325) 1 Each Tablet 1 TAB ORAL ACBREAKFAST, #30 TAB 0 Refills (This prescription has been renewed) Ibuprofen* (Motrin*) 600 Mg Tablet 800 MG ORAL THREE TIMES A DAY (This prescription has been renewed) [Triumeq] () 300 MG PO DAILY (This prescription has been renewed) Discharge Condition Upon Discharge: stable Discharge Disposition Patient was discharged to Home (01) Discharge Diagnoses: (1) Atypical chest pain (2) Hypotension (3) Crohns disease (4) Addisons disease (5) Abdominal pain (6) Scrotal swelling and pain (7) DM2 (diabetes mellitus, type 2) (8) Pulmonary nodule (9) HIV on HAART Kayla Machado M.D. Dec 24, 2017 17:13
[2017-12-26] MEDS ORDERED: Vitamin D 50,000 units cap ORAL SCH (09:00)
--- NOTE | 2017-12-31 16:02 | Cardiology Report ---
APPROVED REPORT EKG Measurement Heart [id number] Normal sinus rhythm Normal ECG
--- NOTE | 2018-02-04 01:06 | Physician Query ---
PLEASE COMPLETE THE DOCUMENT BEFORE SIGNING Dear Dr. Kayla Machado Date 02/03/18 [employer]' Name: Dianne HortonADRIANNE [employer]/CD[employer] Phone#: [phone] Exercise your independent professional judgment when responding to query. Questions asked do not imply particular answer is desired or expected. We greatly appreciate your clarification on this issue. Clinical Documentation States: H & P (12/21/17):"Chest pain r/o ACS" Cardiology Progress Note: Dr. Oliveira (12/21/17) "The patient was ruled out for myocardial infarction by serial cardiac enzymes. His echocardiogram showed ejection fraction of 60% to 65%. His EKG also showed normal sinus rhythm, normal electrocardiogram." Clinical Findings Show: EKG =normal sinus rhythm, normal electrocardiogram Troponin = 0.000, 0.000, 0.000 O2% = 95, 99, 99 ECHO, EF = 60% - 65% Please document the suspected etiology of Chest Pain: a.Type: []Cardiac [x]Non-cardiac []Unspecified b.Etiology - cardiac [] Aortic dissection []Mitral valve prolapsed [] Acute myocardial infarction []Spasm of coronary arteries [] Coronary Artery Disease []Pericarditis c.Etiology - non-cardiac [] Anxiety []Pleurisy [] Cancer []Pneumonia, type [] Costochondritis []Pneumothorax [x] GERD/Esophagitis []Pulmonary embolism [] Unable to determine []Other: Kayla Machado M.D. Date/Time [facility]
== END 2017-12-24 11:12 | disposition home or self-care (01) | DRG 391 ==
LOC: EMR 18:20 → 2E 19:35 → EDBEDREQ 20:32 → 2E 21:15
DX: K21.9 Gastro-esophageal reflux disease without esophagitis (principal); B20 Human immunodeficiency virus [HIV] disease; K50.90 Crohn's disease, unspecified, without complications; E27.40 Unspecified adrenocortical insufficiency; E78.5 Hyperlipidemia, unspecified; E11.9 Type 2 diabetes mellitus without complications; F15.11 Other stimulant abuse, in remission; F17.200 Nicotine dependence, unspecified, uncomplicated; Z91.14 Patient's other noncompliance with medication regimen; N50.819 Testicular pain, unspecified; I95.9 Hypotension, unspecified; R10.9 Unspecified abdominal pain; R91.1 Solitary pulmonary nodule
CPT/HCPCS: 36415; 71045; 76870; 78452; 80053; 80307; 81003; 82550; 82553; 82962; 83880; 84484; 85025; 86850; 86900; 86901; 86920; 93005; 93017; 93306; 94664; 99285; J2405; J2785